=== PATIENT | female | born 1955 | race African-American/Black ===

== ENCOUNTER 2016-11-05 16:11 | Inpatient (IN) | payer MEDICARE ==
[~2016-11-05] VITALS: Ht 170.2 cm; Wt 142.5 kg
[2016-11-05 20:01] LABS: HEMOGLOBIN 11.7 gm/dl (12.3-15.3); RED BLOOD COUNT 3.87 M/UL (4.00-5.10); WHITE BLOOD COUNT 9.4 K/UL (4.5-11.0)
[2016-11-05 20:17] LABS: BUN/CREATININE RATIO 17 (0-10)
[2016-11-05] MEDS ORDERED: VITAMIN B-1000 MCG/M IM (23:49)
[2016-11-05] MEDS ORDERED: NOVOLOG 10100 UNITS1 INJ (23:50)
[2016-11-05] MEDS ORDERED: IPRAT-ALBUT 0.5-3 ML INH (23:50)
[2016-11-05] MEDS ORDERED: PHENERGAN 25 MG25 M1 PO (23:53)
[2016-11-05] MEDS ORDERED: LANTUS SOL100 UNIT/1 SQ (23:53)
[2016-11-05] MEDS ORDERED: NORCO 10-325 T1 EACH PO (23:54)
[2016-11-05] MEDS ORDERED: ALPRAZOLAM0.5 MG PO (23:54)
[2016-11-05] MEDS ORDERED: FLONASE 0.05% N16 GM (23:55)
[2016-11-05] MEDS ORDERED: MOBIC15 MG PO (23:55)
[2016-11-05] MEDS ORDERED: LISINOPRIL20 MG PO (23:55)
[2016-11-05] MEDS ORDERED: PAXIL20 MG PO (23:56)
[2016-11-05] MEDS ORDERED: ECOTRIN81 MG PO (23:56)
[2016-11-05] MEDS ORDERED: PLAVIX 75 MG TA75 MG PO (23:56)
[2016-11-05] MEDS ORDERED: COMBIVENT0.074 GM/I INH (23:57)
[2016-11-05] MEDS ORDERED: PRILOSEC OTC20 MG PO (23:57)
[2016-11-05] MEDS ORDERED: NEURONTIN 400400 MG PO (23:58)
[2016-11-05] MEDS ORDERED: LASIX20 MG PO (23:58)
[2016-11-05] MEDS ORDERED: ALL DAY ALLERGY10 M3 PO (23:58)
[2016-11-05] MEDS ORDERED: COREG 3.125M3.125 MG PO (23:58)
[2016-11-07 08:25] LABS: BUN/CREATININE RATIO 22 (0-10)
[2016-11-08 06:43] LABS: BUN/CREATININE RATIO 17 (0-10)
[2016-11-10 05:53] LABS: BUN/CREATININE RATIO 15 (0-10)
[2016-11-10] MEDS ORDERED: IMDUR ER TAB 3030 MG PO (11:49)
== END 2016-11-10 13:53 | disposition home or self-care (01) | DRG 264 ==
LOC: ER1 16:11 → ZEROF 23:00 → M/S 23:00
PROVIDERS: Family Medicine; Internal Medicine; Internal Medicine Infectious Disease; ADMIT Internal Medicine
PROC: 0JBR0ZZ Excision of Left Foot Subcutaneous Tissue and Fascia, Open Approach (ICD-10-PCS; 2016-11-08)
PROC: B2111ZZ Fluoroscopy of Multiple Coronary Arteries using Low Osmolar Contrast (ICD-10-PCS; principal; 2016-11-09)
DX: I25.110 Atherosclerotic heart disease of native coronary artery with unstable angina pectoris (principal); Z68.42 Body mass index [BMI] 45.0-49.9, adult; L97.429 Non-pressure chronic ulcer of left heel and midfoot with unspecified severity; F11.20 Opioid dependence, uncomplicated; E66.01 Morbid (severe) obesity due to excess calories; E11.621 Type 2 diabetes mellitus with foot ulcer; E11.42 Type 2 diabetes mellitus with diabetic polyneuropathy; I10 Essential (primary) hypertension; E78.5 Hyperlipidemia, unspecified; J44.9 Chronic obstructive pulmonary disease, unspecified; J45.909 Unspecified asthma, uncomplicated; M25.551 Pain in right hip; K21.9 Gastro-esophageal reflux disease without esophagitis; G47.33 Obstructive sleep apnea (adult) (pediatric); I95.89 Other hypotension; R33.9 Retention of urine, unspecified; M51.37 Other intervertebral disc degeneration, lumbosacral region; G89.4 Chronic pain syndrome; F17.200 Nicotine dependence, unspecified, uncomplicated; F41.9 Anxiety disorder, unspecified; I25.2 Old myocardial infarction; Z86.73 Personal history of transient ischemic attack (TIA), and cerebral infarction without residual deficits; Z79.4 Long term (current) use of insulin; Z79.02 Long term (current) use of antithrombotics/antiplatelets; Z79.82 Long term (current) use of aspirin; Z79.1 Long term (current) use of non-steroidal anti-inflammatories (NSAID); Z79.899 Other long term (current) drug therapy; Z88.2 Allergy status to sulfonamides; Z90.710 Acquired absence of both cervix and uterus; Z90.49 Acquired absence of other specified parts of digestive tract; Z98.890 Other specified postprocedural states; Z80.0 Family history of malignant neoplasm of digestive organs; Z82.49 Family history of ischemic heart disease and other diseases of the circulatory system
CPT/HCPCS: ECHO; 36415; 71010; 73650; 73700; 78452; 80048; 80053; 80061; 81001; 82550; 82553; 82962; 83036; 83874; 84443; 84484; 85025; 85610; 85730; 86140; 87070; 87077; 87086; 87186; 87205; 93005; 93017; 93306; 93925; 94640; 94664; 96374; 99285; A9502; C1769; C1894; J1644; J1650; J2250; J2270; J2785; J7030; Q9963

== ENCOUNTER 2017-01-31 17:30 | Emergency (ER) | payer MEDICARE ==
[~2017-01-31 17:30] MED LIST: ALL DAY ALLERGY10 M3 PO; ALPRAZOLAM0.5 MG PO; COMBIVENT0.074 GM/I INH; COREG 3.125M3.125 MG PO; ECOTRIN81 MG PO; FLONASE 0.05% N16 GM; IMDUR ER TAB 3030 MG PO; IPRAT-ALBUT 0.5-3 ML INH; LANTUS SOL100 UNIT/1 SQ; LASIX20 MG PO; LISINOPRIL20 MG PO; MOBIC15 MG PO; NEURONTIN 400400 MG PO; NORCO 10-325 T1 EACH PO; NOVOLOG 10100 UNITS1 INJ; PAXIL20 MG PO; PHENERGAN 25 MG25 M1 PO; PLAVIX 75 MG TA75 MG PO; PRILOSEC OTC20 MG PO; VITAMIN B-1000 MCG/M IM
== END 2017-01-31 19:40 | disposition left against medical advice (07) ==
LOC: ER1 17:30
DX: R07.9 Chest pain, unspecified (principal); R22.43 Localized swelling, mass and lump, lower limb, bilateral; Z53.21 Procedure and treatment not carried out due to patient leaving prior to being seen by health care provider
CPT/HCPCS: 93005